=== PATIENT | female | born 1980 | race Caucasian/White ===

== ENCOUNTER 2016-10-13 18:07 | Emergency (ER) | payer SELFPAY ==
[~2016-10-13] VITALS: Ht 165.1 cm; Wt 70.9 kg
[2016-10-13] MEDS ORDERED: SODIUM CHLORIDE 0.9% 1,000ML IVBOLUS ONE (18:30)
[2016-10-13] MEDS ORDERED: ONDANSETRON 2MG/ML, 2ML IVPush ONE (18:30)
[2016-10-13] MEDS ORDERED: SODIUM CHLORIDE FLUSH 10ML SYR IVF ONE (18:30)
[2016-10-13 18:47] LABS: ASPARTATE AMINO TRANSFERASE 21 U/L (15-37); BLOOD UREA NITROGEN 13 mg/dL (7-18)
[2016-10-13 19:18] LABS: DIFF TOTAL CELLS COUNTED 100 CELL DIFF
[2016-10-13] MEDS ORDERED: METOCLOPRAMIDE 5 MG/ML, 2ML ONE (19:18)
[2016-10-13] MEDS ORDERED: ONDANSETRON 2MG/ML, 2ML ONE (19:19)
[2016-10-13] MEDS ORDERED: DIPHENHYDRAMINE 50 MG/ML, 1ML ONE (19:19)
[2016-10-13 19:22] LABS: VERIFY COUNTS? YES
[2016-10-13] MEDS ORDERED: DIPHENHYDRAMINE 50 MG/ML, 1ML IVPush ONE (19:30)
[2016-10-13] MEDS ORDERED: METOCLOPRAMIDE 5 MG/ML, 2ML IVPush ONE (19:30)
[2016-10-13 20:41] LABS: HCG UR OBC PASS
[2016-10-13] MEDS ORDERED: KETOROLAC 30 MG/1 ML IVPush ONE (21:00)
[2016-10-13] MEDS ORDERED: KETOROLAC 30 MG/1 ML ONE (21:22)
[2016-10-13 21:51] VITALS: BP 113/62
== END 2016-10-13 21:54 | disposition home or self-care (01) ==
LOC: ED 21:07
DX: R55 Syncope and collapse (principal); G44.219 Episodic tension-type headache, not intractable; M79.1 Myalgia; R11.2 Nausea with vomiting, unspecified
CPT/HCPCS: 36415; 70450; 80053; 81001; 81025; 83690; 85025; 87086; 93005; 96361; 96374; 96375; 99285; J1200; J1885; J2765; J7030